=== PATIENT | male | born 1955 | race Caucasian/White ===

== ENCOUNTER 2018-09-11 07:47 | Emergency (ER) | payer BC ==
[~2018-09-11 07:47] MED LIST: COLC0.6T42 PO; LOR5/325 PO
--- NOTE | 2018-09-11 07:49 | ER Report ---
History and Physical Time Seen By MD: 07:49 HPI/ROS CHIEF COMPLAINT: Chest discomfort, exertional dyspnea HISTORY OF PRESENT ILLNESS: Patient is a 63-year-old male here with with complaints of the above originally from [place] on a road trip vacation. Patient reports that in the past when he gets to a higher elevation he typically developed similar symptoms however he became concerned when his blood pressure was found to be markedly elevated with a systolic in the 180s. Patient does have a history significant for hypertension on lisinopril 5 mg, metoprolol and a history of obstructive sleep apnea on CPAP and nocturnal. Patient denies chest pain, shortness breath at rest, abdominal pain, nausea, vomiting. REVIEW OF SYSTEMS: Constitutional: No fever, no chills. Eyes: No discharge. ENT: No sore throat. Cardiovascular: + chest discomfort no palpitations or pain. Respiratory: No cough, + exertional shortness of breath. Gastrointestinal: No abdominal pain, no vomiting. Genitourinary: No hematuria. Musculoskeletal: No back pain. Skin: No rashes. Neurological: No headache. Allergies: Coded Allergies: codeine (Verified Allergy, Severe, NAUSEA/VOMITING, 09/11/18) Home Meds Active Scripts Lisinopril (LISINOPRIL) 10 Mg Tablet, 10 MG PO QDAY for 30 Days, #30 TAB 2 Refills Prov:HIGGINSLEILA Cifuentes DO 09/11/18 Reported Medications Naproxen Sodium (ALEVE) 220 Mg Capsule, 440 MG PO QDAY, CAPSULE 09/11/18 Lisinopril (LISINOPRIL) 5 Mg Tablet, 5 MG PO QDAY, TAB 09/11/18 Allopurinol (ZYLOPRIM) 300 Mg Tablet, 100 MG PO QDAY, TAB 09/11/18 Valacyclovir Hcl (VALACYCLOVIR) 500 Mg Tablet, 500 MG PO QDAY 09/11/18 Metoprolol Succinate (METOPROLOL SUCCINATE) 50 Mg Tab.er.24h, 2 TAB PO QDAY, TAB 09/11/18 Discontinued Reported Medications Hydrocodone Bit/Acetaminophen (HYDROCODON-ACETAMINOPHEN 5-325) 1 Each Tablet, 1 - 2 EACH PO Q4-6H PRN, #20 TAKE ONE TABLET BY MOUTH EVERY 4-6 HOURS NEEDED FOR PAIN 11/06/12 Colchicine (COLCHICINE) 0.6 Mg Tablet, 0.6 MG PO PRN 11/06/12 [None] No Conflict Check 11/06/12 Hx Smoking: No Hx Substance Use Disorder: No Hx Alcohol Use: Yes (RARE) Constitutional Vital Sign - Last 24 Hours 09/11/18 09/11/18 09/11/18 09/11/18 07:47 07:56 08:00 08:01 Temp 98.0 Pulse 78 74 Resp 12 B/P (MAP) 194/108 (136) 188/105 (132) 194/108 Pulse Ox 93 O2 Delivery Room Air 09/11/18 09/11/18 09/11/18 09/11/18 08:17 08:20 08:40 08:47 Pulse 77 69 Resp 18 B/P (MAP) 174/106 (128) 140/92 (108) Pulse Ox 89 91 09/11/18 09/11/18 09/11/18 09/11/18 09:00 09:17 09:20 09:25 Pulse 66 64 Resp 10 15 B/P (MAP) 151/89 (109) 159/95 (116) Pulse Ox 91 93 09/11/18 09:40 B/P (MAP) 160/101 (120) Physical Exam General Appearance: The patient is alert, has no immediate need for airway protection and no signs of toxicity. No acute distress Eyes: Pupils equal and round no pallor or injection. ENT, Mouth: Mucous membranes are moist. Respiratory: There are no retractions, lungs are clear to auscultation. Cardiovascular: Regular rate and rhythm. Gastrointestinal: Abdomen is soft and non tender, no masses, bowel sounds normal. Neurological: No focal neurological deficit Skin: Warm and dry, no rashes. Musculoskeletal: Neck is supple non tender. Extremities are nontender, nonswollen and have full range of motion. DIFFERENTIAL DIAGNOSIS: After history and physical exam differential diagnosis was considered for shortness of breath including but not limited to pulmonary infectious process, COPD, asthma, pulmonary embolus and congestive heart failure, altitude sickness, hypertensive urgency, hypertensive emergency Medical Decision Making Data Points Result Diagram: 09/11/18 0804 09/11/18 0804 Laboratory Hematology Test 09/11/18 08:04 09/11/18 08:41 Red Blood Count 5.09 M/uL (4.00-5.60) Mean Corpuscular Volume 87.4 fL (80.0-96.0) Mean Corpuscular Hemoglobin 29.3 pg (26.0-33.0) Mean Corpuscular Hemoglobin Concent 33.5 g/dL (32.0-36.0) Red Cell Distribution Width 14.6 % (11.5-14.5) Mean Platelet Volume 8.7 fL (7.2-11.1) Neutrophils (%) (Auto) 60.0 % (39.4-72.5) Lymphocytes (%) (Auto) 26.9 % (17.6-49.6) Monocytes (%) (Auto) 8.2 % (4.1-12.4) Eosinophils (%) (Auto) 4.0 % (0.4-6.7) Basophils (%) (Auto) 0.9 % (0.3-1.4) Nucleated RBC Relative Count (auto) 0.1 /100WBC Neutrophils # (Auto) 4.5 K/uL (2.0-7.4) Lymphocytes # (Auto) 2.0 K/uL (1.3-3.6) Monocytes # (Auto) 0.6 K/uL (0.3-1.0) Eosinophils # (Auto) 0.3 K/uL (0.0-0.5) Basophils # (Auto) 0.1 K/uL (0.0-0.1) Nucleated RBC Absolute Count (auto) 0.01 K/uL Sodium Level 140 mmol/L (137-145) Potassium Level 4.4 mmol/L (3.5-5.0) Chloride Level 106 mmol/L (98-107) Carbon Dioxide Level 27 mmol/L (22-30) Blood Urea Nitrogen 16 mg/dl (9-21) Creatinine 1.10 mg/dl (0.66-1.25) Glomerular Filtration Rate Calc > 60.0 Random Glucose 98 mg/dl (75-110) Calcium Level 9.4 mg/dl (8.4-10.2) Total Bilirubin 0.5 mg/dl (0.2-1.3) Aspartate Amino Transf (AST/SGOT) 36 U/L (0-35) Alanine Aminotransferase (ALT/SGPT) 28 U/L (0-56) Alkaline Phosphatase 73 U/L (0-126) Troponin I < 0.012 ng/ml B-Type Natriuretic Peptide 26 pg/ml (0-100) Total Protein 7.6 g/dl (6.3-8.2) Albumin 4.4 g/dl (3.5-5.0) Blood Gas Patient Temperature 98.0 DEGREES Venous Blood pH 7.39 (7.31-7.41) Venous Blood Partial Pressure CO2 37 mmHg Venous Blood Partial Pressure O2 40 mmHg Venous Blood HCO3 22 mmol/L Venous Blood Oxygen Saturation 76 % Venous Blood Base Excess -3 mmol/L Oxygen Liters/Minute Rm Chemistry Test 09/11/18 08:04 09/11/18 08:41 White Blood Count 7.4 k/uL (4.5-11.0) Red Blood Count 5.09 M/uL (4.00-5.60) Hemoglobin 14.9 g/dL (14.0-18.0) Hematocrit 44.5 % (42.0-52.0) Mean Corpuscular Volume 87.4 fL (80.0-96.0) Mean Corpuscular Hemoglobin 29.3 pg (26.0-33.0) Mean Corpuscular Hemoglobin Concent 33.5 g/dL (32.0-36.0) Red Cell Distribution Width 14.6 % (11.5-14.5) Platelet Count 217 K/uL (150-450) Mean Platelet Volume 8.7 fL (7.2-11.1) Neutrophils (%) (Auto) 60.0 % (39.4-72.5) Lymphocytes (%) (Auto) 26.9 % (17.6-49.6) Monocytes (%) (Auto) 8.2 % (4.1-12.4) Eosinophils (%) (Auto) 4.0 % (0.4-6.7) Basophils (%) (Auto) 0.9 % (0.3-1.4) Nucleated RBC Relative Count (auto) 0.1 /100WBC Neutrophils # (Auto) 4.5 K/uL (2.0-7.4) Lymphocytes # (Auto) 2.0 K/uL (1.3-3.6) Monocytes # (Auto) 0.6 K/uL (0.3-1.0) Eosinophils # (Auto) 0.3 K/uL (0.0-0.5) Basophils # (Auto) 0.1 K/uL (0.0-0.1) Nucleated RBC Absolute Count (auto) 0.01 K/uL Glomerular Filtration Rate Calc > 60.0 Calcium Level 9.4 mg/dl (8.4-10.2) Total Bilirubin 0.5 mg/dl (0.2-1.3) Aspartate Amino Transf (AST/SGOT) 36 U/L (0-35) Alanine Aminotransferase (ALT/SGPT) 28 U/L (0-56) Alkaline Phosphatase 73 U/L (0-126) Troponin I < 0.012 ng/ml B-Type Natriuretic Peptide 26 pg/ml (0-100) Total Protein 7.6 g/dl (6.3-8.2) Albumin 4.4 g/dl (3.5-5.0) Blood Gas Patient Temperature 98.0 DEGREES Venous Blood pH 7.39 (7.31-7.41) Venous Blood Partial Pressure CO2 37 mmHg Venous Blood Partial Pressure O2 40 mmHg Venous Blood HCO3 22 mmol/L Venous Blood Oxygen Saturation 76 % Venous Blood Base Excess -3 mmol/L Oxygen Liters/Minute Rm EKG/Imaging EKG Interpretation PATIENT NAME: BRYANT CADET : [id number] MR: [id number] V: [id number] EXAM DATE: ORDERING PHYSICIAN: LEILA HIGGINS TECHNOLOGIST: DIANNE Magaña Reason : CARDIAC Blood Pressure : / mmHG Vent. Rate : 068 BPM Atrial Rate : 068 BPM P-R Int : 160 ms QRS Dur : 088 ms QT Int : 412 ms P-R-T Axes : 033 053 058 degrees QTc Int : 438 ms Poor data quality, interpretation may be adversely affected Normal sinus rhythm Normal ECG No previous ECGs available Referred By: Confirmed By: Imaging PATIENT NAME: Bryant Cadet : 1955 MR: [id number] V: [id number] EXAM DATE: ORDERING PHYSICIAN: LEILA HIGGINS TECHNOLOGIST: [place] [facility] [place] : 1955 Visit/Account:[id number] Date of Sevice: 09/11/2018 CHEST PA LAT INDICATION: RESP DISTRESS COMPARISON: None available FINDINGS: Heart size within normal limits. There is no focal infiltrate or lobar consolidation. There is no pneumothorax or pleural effusion. IMPRESSION: 1. No acute cardiopulmonary process. ED Course/Re-evaluation ED Course Patient is a 63-year-old male here with complaints of exertional dyspnea, hypertension in spite of being on metoprolol, lisinopril 5 mg. Chest x-ray showed no acute findings of infectious etiology, pulmonary edema. Troponin was negative, there is a leukocytosis, VBG was unremarkable. EKG showed no ischemic changes or arrhythmias. Patient was given a prescription for 10 mg lisinopril dose which is an increase from his prior 5 mg dosing. There are no signs of end organ damage suggestive of hypertensive urgency or emergency. Recommend close PCP follow-up, return precautions provided. Decision to Disposition Date: Sep 11, 2018 Decision to Disposition Time: 09:45 Depart Departure Latest Vital Signs Vital Signs Date Time Temp Pulse Resp B/P (MAP) Pulse Ox O2 Delivery O2 Flow Rate FiO2 09/11/18 09:40 160/101 (120) 09/11/18 09:25 64 15 93 09/11/18 08:01 98.0 Room Air Impression: Primary Impression: Hypertension Additional Impression: Exertional dyspnea Condition: Improved Disposition: HOME OR SELF-CARE New Scripts Lisinopril (LISINOPRIL) 10 Mg Tablet 10 MG PO QDAY for 30 Days, #30 TAB 2 Refills Prov: LEILA HIGGINS DO 09/11/18 Patient Instructions: Dyspnea (GEN), Hypertension (ED) Additional Instructions: Please drink plenty of water. Today your chest x-ray was found to be normal with no signs of infection or fluid on the lungs. Your blood counts, kidney function, electrolytes, cardiac enzyme, EKG were all found to be within normal limits. In order to address your blood pressure, I recommend initial increase of lisinopril to 10 mg from 5 mg daily. A prescription has been given to you for this new medication dosing. Please monitor her blood pressure several times during the day and decrease the dosage if your blood pressure drops precipitously. Please return immediately if you develop increasing shortness of breath, chest pains, fever, productive cough, lightheadedness, nausea, vomiting. Problem Qualifiers LEILA HIGGINS DO Sep 11, 2018 07:49
[2018-09-11] MEDS ORDERED: METO50TA19 PO (08:08)
[2018-09-11] MEDS ORDERED: ALLO-119 PO (08:08)
[2018-09-11] MEDS ORDERED: VALA500T63 PO (08:08)
[2018-09-11] MEDS ORDERED: LISI5TAB25 PO (08:08)
[2018-09-11] MEDS ORDERED: NAPR220C12 PO (08:08)
[2018-09-11 08:42] LABS: PLATELET COUNT, AUTOMATED 217 K/uL (150-450)
--- NOTE | 2018-09-11 09:08 | RADIOLOGY IMAGING REPORT ---
FACILITY: [facility] PATIENT NAME: Jim Cadet : 1955 MR: [id number] V: [id number] EXAM DATE: ORDERING PHYSICIAN: LEILA HIGGINS TECHNOLOGIST: Location: [facility] [place] Patient: Jim Cadet : 1955 Visit/Account:[id number] Date of Sevice: 09/11/2018 CHEST PA LAT INDICATION: RESP DISTRESS COMPARISON: None available FINDINGS: Heart size within normal limits. There is no focal infiltrate or lobar consolidation. There is no pneumothorax or pleural effusion. IMPRESSION: 1. No acute cardiopulmonary process. Report Dictated By: Sergio Dimas at 09/11/2018 9:04 AM Report E-Signed By: Sergio Dimas at 09/11/2018 9:04 AM WSN:[id number]
--- NOTE | 2018-09-11 09:16 | EKG ---
FACILITY: [facility] - [place] PATIENT NAME: BRYANT SCHUMACHER : [id number] MR: [id number] V: [id number] EXAM DATE: ORDERING PHYSICIAN: LEILA HIGGINS TECHNOLOGIST: DIANNE Magaña Reason : CARDIAC Blood Pressure : / mmHG Vent. Rate : 068 BPM Atrial Rate : 068 BPM P-R Int : 160 ms QRS Dur : 088 ms QT Int : 412 ms P-R-T Axes : 033 053 058 degrees QTc Int : 438 ms Normal sinus rhythm Normal ECG No previous ECGs available Confirmed by KAJAL PERRIN ([id number]) on 09/11/2018 2:40:18 PM Referred By: Confirmed By:KAJAL PERRIN
[2018-09-11 09:40] VITALS: BP 160/101
[2018-09-11] MEDS ORDERED: LISI-362 PO (09:48)
== END 2018-09-11 10:09 | disposition home or self-care (01) ==
LOC: ER 07:55
DX: I10 Essential (primary) hypertension (principal); R06.09 Other forms of dyspnea
CPT/HCPCS: 71046; 82040; 82247; 82310; 82374; 82435; 82565; 82803; 82947; 83880; 84075; 84132; 84155; 84295; 84450; 84460; 84484; 84520; 85025; 93005; 99284